=== PATIENT | male | born 1950 | race Caucasian/White ===

== ENCOUNTER 2017-08-01 19:03 | Emergency (ER) | payer MEDICARE ==
[2017-08-01] MEDS ORDERED: LIDOCAINE HCL 1% 20 ML VIAL ONE (20:24)
[2017-08-01] MEDS ORDERED: TETANUS/DIPHTHERIA TOXOID [ADULT] 0.5 ML VIAL IM ONE (20:42)
== END 2017-08-01 20:57 | disposition home or self-care (01) ==
LOC: EDH 19:03
DX: S81.851A Open bite, right lower leg, initial encounter (principal); E78.5 Hyperlipidemia, unspecified; I10 Essential (primary) hypertension; W54.0XXA Bitten by dog, initial encounter; Y93.89 Activity, other specified; Y92.488 Other paved roadways as the place of occurrence of the external cause; Y99.8 Other external cause status
CPT/HCPCS: 12001; 73590; 90471; 90714